=== PATIENT | female | born 1945 | race Caucasian/White ===

== ENCOUNTER 2018-11-22 00:03 | Emergency (ER) | payer MEDICARE ==
[~2018-11-22] VITALS: Ht 165.1 cm; Wt 56.7 kg
[2018-11-22 00:24] VITALS: BP 154/82
--- NOTE | 2018-11-22 00:24 | NUR ---
ED Nurse Note: [place]. C/o right leg was injuried when taking a bus steps. It has a large leceration on right lower leg which still having bleeding and covered with a bandage. Pt is A/O X4. Vital signs stable at this time, waitng for orders.
--- NOTE | 2018-11-22 00:40 | Emergency Room Report ---
History of Present Illness General Chief Complaint: Laceration Source: Patient Present Illness HPI Patient presented with laceration to the right mid tibial area This occurred just prior to arrival patient was going onto a bus essentially missed a step and hit the tibial area onto the next step causing the laceration Patient has some minimal discomfort Bleeding was also controlled with pressure Denies any knee pain denies any ankle pain denies any other lapse of consciousness or trauma Allergies: Coded Allergies: DOXYCYCLINE (Verified Allergy, Unknown, rash, 11/22/18) OXYCODONE (Verified Allergy, Unknown, 11/22/18) Patient History Past Medical History: see triage record Pertinent Family History: none Reviewed Nursing Documentation: PMH: Agreed; PSxH: Agreed Nursing Documentation-PMH Hx Hypertension: Yes Hx Asthma: Yes Review of Systems All Other Systems: negative except mentioned in HPI Physical Exam Vital Signs Date Time Temp Pulse Resp B/P (MAP) Pulse Ox O2 Delivery O2 Flow Rate FiO2 11/22/18 00:15 98.2 85 18 159/84 96 Room Air Sp02 EP Interpretation: reviewed, normal General Appearance: well appearing, no apparent distress Head: normocephalic, atraumatic Eyes: bilateral eye PERRL, bilateral eye EOMI ENT: hearing grossly normal, normal pharynx Neck: full range of motion, supple Respiratory: lungs clear Cardiovascular #1: regular rate, rhythm Musculoskeletal: normal inspection Neurologic: alert, oriented x3, responsive, 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 Skin: other - There is a combination of skin tear, this is in a V-type shape pattern total length is approximately 4 cm, on the more medial aspect there is a separation of the adipose tissue as well, Lymphatic: no adenopathy Procedures Laceration/Wound Repair Laceration/Wound Repair : Consent: Verbal Wound Location: lower extremity Wound's Depth, Shape: into muscle, irregular Wound Length (cm): 8 Wound Explored: no foreign body removed Irrigated w/ Saline (ccs): 200 Betadine Prep?: Yes Anesthesia: Lidocaine w/ Epi Volume Anesthetic (ccs): 6 Wound Debrided: minimal Wound Repaired With: sutures Suture Size/Type: 4:0 Number of Sutures: 11 Layer Closure?: No Sterile Dressing Applied?: Yes Splint Applied?: No Patient Tolerated: Well Complications: None Progress The laceration involves essentially skin tear, along with aspect past the subcutaneous tissue, very jagged in nature, sutures are placed as noted above in order to provide approximation of the skin Medical Decision Making Diagnostic Impression: Primary Impression: Laceration ER Course The laceration involved is fairly jagged and irregular there is a component of skin tear along with subcutaneous involvement no obvious muscle tissue No other tendon involvement Patient had suture as noted above Given the jaggedness and the irregularity there will be scar tissue I did discuss this with the patient also given the appearance patient was given antibiotics here and was put on oral antibiotics given consideration for infection patient requires close outpatient follow-up Last Vital Signs Date Time Temp Pulse Resp B/P (MAP) Pulse Ox O2 Delivery O2 Flow Rate FiO2 11/22/18 00:24 98.1 81 18 154/82 96 Room Air Status: improved Disposition: HOME, SELF-CARE Condition: Improved Scripts Cephalexin* (KEFLEX*) 500 Mg Capsule 500 MG ORAL EVERY 6 HOURS for 7 Days, CAP Prov: Rosy Williamson DO 11/22/18 Referrals: NOT CHOSEN IPA/MD,REFERRING (PCP) Additional Instructions: Patient is provided with the discharge instructions notified to follow up with primary doctor in the next 2-3 days otherwise return to the er with any worsening symptoms. Please note that this report is being documented using [employer] technology. This can lead to erroneous entry secondary to incorrect interpretation by the dictating instrument. Rosy Williamson DO Nov 22, 2018 00:40
[2018-11-22] MEDS ORDERED: Lidocaine 1% 10mg/ml/Epi 0.005mg/ml 30ml vial INJ ONE (00:45)
[2018-11-22] MEDS ORDERED: Hydrogen Peroxide 473ml Bottle TOPIC ONE ×2 (00:55→01:00)
[2018-11-22] MEDS ORDERED: CEPHALEXIN500 MG ORAL (01:20)
[2018-11-22 01:30] VITALS: BP 151/80
[2018-11-22] MEDS ORDERED: Cephalexin 500mg cap ORAL ONE (01:30)
--- NOTE | 2018-11-22 01:30 | NUR ---
[facility] Nurse Note: Pt has seen by Dr. Williamson, all orders carried out. Pt is ready for discharged. Discharge instruction and prescription given to pt and verbalized understanding. ID band removed.Pt discharge from ED with steady gait and all his belongings. Accompanied by her family. Addendum: 11/22/18 at 0221 by JOHNNIE ED Nurse Note: Pt has seen by Dr. Williamson, all orders carried out. Suturing done and dressing applied. Pt is ready for discharged. Discharge instruction and prescription given to pt and verbalized understanding. ID band removed.Pt discharge from ED with steady gait and all his belongings. Accompanied by her family.
== END 2018-11-22 01:30 | disposition home or self-care (01) ==
LOC: EMR 00:34
DX: S81.811A Laceration without foreign body, right lower leg, initial encounter (principal); W17.89XA Other fall from one level to another, initial encounter; Y92.811 Bus as the place of occurrence of the external cause; I10 Essential (primary) hypertension; J45.909 Unspecified asthma, uncomplicated
CPT/HCPCS: 99283